=== PATIENT | male | born 1970 | race Caucasian/White ===

== ENCOUNTER → 2019-11-28 | Outpatient (CLI) | payer OTHER ==
[~2019-11-28] MED LIST: OLAN10 PO; OLAN5 PO
[2019-11-28 14:19] LABS: U Amphetamine Screen Not Detected; U Barbituate Screen Not Detected; U Benzodiazapine Screen Not Detected; U Buprenorphine Screen Not Detected; U Cannabinoids Screen DETECTED; U Cocaine Screen Not Detected; U Methadone Screen Not Detected; U Methamphetamine Screen Not Detected; U Opiates Screen Not Detected; U Oxycodone Screen Not Detected; U Phencyclidine Screen Not Detected; U Propoxyphene Screen Not Detected
== END | disposition home or self-care (01) ==
LOC: LAB SHORT 12:00 → OLS 12:00
PROVIDERS: Orthopaedic Surgery
DX: M75.21 Bicipital tendinitis, right shoulder (principal)

== ENCOUNTER 2020-01-26 12:03 | Day surgery (SDC) | payer OTHER ==
[~2020-01-26] VITALS: Ht 180.3 cm; Wt 86.7 kg
[2020-01-26] MEDS ORDERED: GABA800 PO (12:38)
--- NOTE | 2020-01-26 12:43 | NUR ---
01/26/20 1243 Rosalind Adams CHARTED BY DINA KENNY RN
--- NOTE | 2020-01-26 16:14 | NUR ---
01/26/20 1614 Chandrika Lennon ASSUMED CARE OF PATIENT FROM [place]. PATIENT URINATED 200ML DARK YELLOW URINE. PATIENT COMPLAINS OF STIFFNESS IN HIS SHOULDER. VSS. WILL MEDICATE PER ORDERS. WILL CONTINUE TO MONITOR PATIENT.
== END 2020-01-26 17:05 | disposition home or self-care (01) ==
LOC: ORSCSDS 12:03
PROVIDERS: Orthopaedic Surgery
PROC: 0RHJ44Z Insertion of Internal Fixation Device into Right Shoulder Joint, Percutaneous Endoscopic Approach (ICD-10-PCS; principal; 2020-01-26 13:30)
PROC: 0LQ14ZZ Repair Right Shoulder Tendon, Percutaneous Endoscopic Approach (ICD-10-PCS; principal; 2020-01-26 13:30)
PROC: 0LS34ZZ Reposition Right Upper Arm Tendon, Percutaneous Endoscopic Approach (ICD-10-PCS; principal; 2020-01-26 13:30)
PROC: 0RNJ4ZZ Release Right Shoulder Joint, Percutaneous Endoscopic Approach (ICD-10-PCS; principal; 2020-01-26 13:30)
DX: M75.101 Unspecified rotator cuff tear or rupture of right shoulder, not specified as traumatic (principal); M75.21 Bicipital tendinitis, right shoulder; M75.41 Impingement syndrome of right shoulder; I10 Essential (primary) hypertension; F31.9 Bipolar disorder, unspecified; Z87.891 Personal history of nicotine dependence; Z79.899 Other long term (current) drug therapy
CPT/HCPCS: A9270-GY; C1713; J0171; J0690; J1100; J2250; J2370; J2405; J2704; J2710; J3010; J7120

== ENCOUNTER 2020-04-24 13:22 | Emergency (ER) | payer OTHER ==
[~2020-04-24] VITALS: Ht 180.3 cm; Wt 84.8 kg
[~2020-04-24 13:22] MED LIST changes: +GABA800 PO
== END 2020-04-24 15:45 | disposition home or self-care (01) ==
LOC: ER 13:22
DX: S20.211A Contusion of right front wall of thorax, initial encounter (principal); Z79.899 Other long term (current) drug therapy; Z87.891 Personal history of nicotine dependence; W22.8XXA Striking against or struck by other objects, initial encounter
CPT/HCPCS: 71100; 99283-25